=== PATIENT | female | born 1965 | race Two or more races ===

== ENCOUNTER 2024-05-06 14:39 | Emergency (ER) | payer MEDICARE, OTHER ==
[~2024-05-06] VITALS: Ht 167.6 cm; Wt 90.0 kg
[2024-05-06 15:23] VITALS: TEMP 98.8
[2024-05-06] MEDS: DIAZEPAM 5 MG TABLET PO ONE (16:21)
[2024-05-06] MEDS: IBUPROFEN 400 MG TABLET PO ONE (16:21)
[2024-05-06] MEDS: ACETAMINOPHEN 325 MG TABLET PO ONE (16:22)
[2024-05-06 18:13] VITALS: BP 149/88; PULSE 97; RESP 19; O2SAT 100
== END 2024-05-06 18:42 | disposition home or self-care (01) ==
LOC: EMS 14:39 → EDSEX 14:39 → EMS 18:42
DX: M54.6 Pain in thoracic spine (principal); J45.909 Unspecified asthma, uncomplicated; I10 Essential (primary) hypertension; F20.9 Schizophrenia, unspecified; F31.9 Bipolar disorder, unspecified
CPT/HCPCS: 71045; 99284